=== PATIENT | female | born 1970 | race African-American/Black ===

== ENCOUNTER 2017-03-26 10:02 | Inpatient (IN) | payer OTHER ==
--- NOTE | 2017-03-26 10:44 | PDOC ---
History of Present Illness - General History Source: Patient Exam Limitations: No Limitations - History of Present Illness Initial Comments: 03/26/17 11:56 The patient is a 46 year old female, with a significant past medical history of Anemia who presents to the emergency department with worsening L flank pain today. Patient reports the pain began yesterday with 2-3 episodes of vomiting ( nonbilious, nonbloody), nausea and dysuria. Today, patient reports progressively worsening pain radiating to her suprapubic area and across her abdomen. Patient reports pain is exacerbated upon deep inspiration and positional changes. Upon arrival to the ED, patient vital signs are significant for 101 temperature. She denies chest pain, headache or dizziness. She denies diarrhea or constipation. She denies frequency, urgency or hematuria. Patient denies sick contacts or recent travel. Allergies: NKA Past surgical history: None Social history: None PCP: None <Marzena Sheriff - Last Filed: 03/26/17 16:39> <Lion Billy - Last Filed: 03/26/17 18:08> - General Chief Complaint: Pain Stated Complaint: ABDOMINAL PAIN Time Seen by Provider: 03/26/17 10:36 Past History <Marzena Sheriff - Last Filed: 03/26/17 16:39> - Past Medical History Thyroid Disease: No - Suicide/Smoking/Psychosocial Hx Smoking History: Never smoked Have you smoked in the past 12 months: No Information on smoking cessation initiated: No Hx Alcohol Use: No Drug/Substance Use Hx: No Substance Use Type: None Hx Substance Use Treatment: No <Lion Billy - Last Filed: 03/26/17 18:08> - Past Medical History Allergies/Adverse Reactions: Allergies Allergy/AdvReac Type Severity Reaction Status Date / Time No Known Allergies Allergy Verified 03/26/17 13:04 Home Medications: Ambulatory Orders NK [No Known Home Medication] 03/26/17 Review of Systems - Review of Systems Able to Perform ROS?: Yes Comments:: 03/26/17 11:56 A complete review of 10 out of 10 review of systems is taken and is negative apart from what is previously mentioned below and in the HPI. <Marzena Sheriff - Last Filed: 03/26/17 16:39> *Physical Exam - Vital Signs Last Vital Signs Temp Pulse Resp BP Pulse Ox 99.2 F 86 18 138/78 100 03/26/17 10:08 03/26/17 10:08 03/26/17 10:08 03/26/17 10:08 03/26/17 10:08 - Physical Exam Comments: 03/26/17 11:56 Vitals: Triage Vital signs reviewed General Appearance: +Moderate distress, well nourished well developed, Head: Atraumatic, normocephalic Neck: Supple;No Nuchal rigidity Cardiac: Regular rate and rhythm, no murmurs, no rubs, no gallops, Lungs: Clear to auscultation bilateral, good air movement bilaterally, Abdomen: +L CVA tenderness. +Diffuse abdominal tenderness to palpation. Normal bowel sounds. Extremities: Full range of motion to all extremities, no cyanosis, clubbing, or edema Skin: Warm and dry, no rashes or lesions, no petechiae Neuro: AOX3; Cranial Nerves 2-12 grossly intact, Strength intact to all extremities, Sensation intact to all extremities <Marzena Sheriff - Last Filed: 03/26/17 16:39> - Vital Signs Last Vital Signs Temp Pulse Resp BP Pulse Ox 99.2 F 86 18 138/78 100 03/26/17 10:08 03/26/17 10:08 03/26/17 10:08 03/26/17 10:08 03/26/17 10:08 <Lion Billy - Last Filed: 03/26/17 18:08> ED Treatment Course - LABORATORY CBC & Chemistry Diagram: 03/26/17 12:50 03/26/17 11:15 - ADDITIONAL ORDERS Additional order review: Laboratory Results 03/26/17 11:15 Urine Color Yellow Urine Appearance Slcloudy Urine pH 6.0 D Urine Protein 1+ H Urine Glucose (UA) Negative Urine Ketones Negative Urine Blood Negative Urine Nitrite Negative Urine Bilirubin Negative Urine Urobilinogen Negative - Medications Given in the ED: ED Medications Discontinued Medications Generic Name Dose Route Start Last Admin Trade Name Manishq PRN Reason Stop Dose Admin Acetaminophen 1,000 mg 03/26/17 11:39 03/26/17 11:35 Tylenol - PO 03/26/17 11:40 1,000 mg NOW ONE Administration Morphine Sulfate 4 mg 03/26/17 10:48 03/26/17 11:30 Morphine Injection - IVPUSH 03/26/17 10:49 4 mg ONCE ONE Administration Sodium Chloride 2,000 ml 03/26/17 10:48 03/26/17 11:30 Normal Saline - IV 03/26/17 10:49 2,000 ml ONCE ONE Administration <Marzena Sheriff - Last Filed: 03/26/17 16:39> - LABORATORY CBC & Chemistry Diagram: 03/26/17 12:50 03/26/17 11:15 <Lion Billy - Last Filed: 03/26/17 18:08> Medical Decision Making - Medical Decision Making 03/26/17 13:[address] Grande- [employer] ENTRY CLERK Voicemail left Awaiting call back. 03/26/17 13:[address] Grande- [employer] ENTRY CLERK Voicemail left Awaiting call back. 03/26/17 13:[address] Grande- [employer] ENTRY CLERK Voicemail left Awaiting call back. 03/26/17 14:30 Call placed to L&D 03/26/17 14:[address] Coleman. Awaiting call back. 03/26/17 15:[address] Coleman. Awaiting call back. 03/26/17 15:[address] Coleman. Case discussed. 03/26/17 15:42 Transvaginal US Impression: Large retroverted fibroid uterus, as described above. Normal- appearing left ovary. Couple of small cysts/follicles in the right ovary with a small amount of free fluid in the right adnexa and cul-de-sac. Adjacent fluid- filled small bowel loops Reported By: Khang Kim MD 03/26/[address] Impression: Small right hepatic lesion again seen likely representing a cavernous hemangioma, without gross interval change. Further evaluation is needed for confirmation. Tiny left renal cysts. There is no evidence of small bowel obstruction. No enlarged lymph nodes are identified. Nonvisualization of the appendix. Enlarged fibroid uterus again seen. There is a small amount of free fluid again seen in the cul-de- sac extending to the right lower quadrant. Previously visualized right adnexal cysts are no longer visualized. Ill-defined hypodensity with wall thickening in the left hemipelvis that may represent the left ovary with multiple small cyst. A dilated left fallopian tube with wall thickening cannot be ruled out. Reported By: Khang Kim MD 03/26/17 1333 03/26/17 16:[address] Blackman Case discussed 03/26/17 16:[address] Sade Lawton telephone station repairer Awaiting call back <Marzena Sheriff - Last Filed: 03/26/17 16:39> - Critical Care Time Total Critical Care Time (minutes): 40 Critical Care Statement: The care of this patient involved high complexity decision making to prevent further life threatening deterioration of the patient 's condition and/or to evaluate & treat vital organ system(s) failure or risk of failure. - Medical Decision Making 03/26/17 11:40 46 years old with no significant past medical history presents to the emergency department with 2 day history of back pain dysuria and abdominal discomfort. Positive vomiting last night. On examination patient very tender abdomen and flank discomfort. Here in the emergency department febrile to 101 Tylenol given blood cultures ordered urinalysis sent labs sent we'll CT abdomen pelvis with IV contrast pain meds and reassess 03/26/17 16:45 Reevaluation no acute findings on CAT scan given fibroid and possible left ovarian findings and ultrasound was ordered A bedside ultrasound was performed with moderate to severe cervical motion tenderness and copious yellow/white discharge. A culture was sent At this time ultrasound with reassuring findings no evidence of torsion no evidence of ovarian mass Most likely diagnosis at this time is PID patient treated with cefoxitin doxycycline and Flagyl covering for Dr. Keith agrees with admission. Dr. Rizzo covering for Dr. Gregorio [employer] ENTRY CLERK aware of admission we'll consult <Lion Billy - Last Filed: 03/26/17 18:08> *DC/Admit/Observation/Transfer - Attestations Scribe Attestion: 03/26/17 11:57 Documentation prepared by Marzena Sheriff, acting as director medical writing for Lion Billy MD <Marzena Sheriff - Last Filed: 03/26/17 16:39> - Discharge Dispostion Admit: Yes <Lion Billy - Last Filed: 03/26/17 18:08> Diagnosis at time of Disposition: PID (pelvic inflammatory disease)
[2017-03-26] MEDS ORDERED: SODIUM CHLORIDE 1,000 ML IV STA (10:45)
[2017-03-26] MEDS ORDERED: morphine CARPU-JECT 4 MG/1 ML DISP.SYRIN IVPUSH ONE (10:48)
[2017-03-26] MEDS ORDERED: SODIUM CHLORIDE 0.9% 1000 ML INFUS.BAG IV ONE (10:48)
[2017-03-26] MEDS ORDERED: morphine CARPU-JECT 10 MG/1 ML DISP.SYRIN ONE (11:31)
[2017-03-26] MEDS ORDERED: ACETAMINOPHEN 325 MG TABLET (FP) ONE ×2 (11:31→18:25)
[2017-03-26] MEDS ORDERED: ACETAMINOPHEN 500 MG TABLET (FP) PO ONE (11:39)
[2017-03-26 11:41] LABS: URINE APPEARANCE SLCLOUDY; URINE BILIRUBIN NEGATIVE (NEGATIVE); URINE BLOOD NEGATIVE (NEGATIVE); URINE COLOR YELLOW; URINE GLUCOSE (UA) NEGATIVE (NEGATIVE); URINE KETONE NEGATIVE (NEGATIVE); URINE NITRITE NEGATIVE (NEGATIVE); URINE UROBILINOGEN NEGATIVE mg/dL (0.2-1.0)
[2017-03-26] MEDS ORDERED: ACETAMINOPHEN 325 MG TABLET (FP) PO ONE ×2 (11:41→17:39)
[2017-03-26 11:53] LABS: URINE PROTEIN 1+ (NEGATIVE)
[2017-03-26 11:55] LABS: URINE MUCUS MODERATE; URINE RBC 1 /hpf (0-3); URINE WBC 1 /hpf (3-5)
[2017-03-26 12:07] LABS: ALBUMIN 3.6 g/dl (3.4-5.0); ANION GAP 7 (8-16); CALCIUM 8.7 mg/dL (8.5-10.1); CO2 25 mmol/L (21-32); CREATININE 0.9 mg/dL (0.55-1.02); GLUCOSE,RANDOM 141 mg/dL (74-106); SGOT/AST 13 U/L (15-37); SGPT/ALT 14 U/L (12-78)
[2017-03-26 12:08] LABS: ALK PHOS 53 U/L (45-117); BILIRUBIN,TOTAL 0.6 mg/dL (0.2-1.0); TOT PROT 8.4 g/dl (6.4-8.2)
[2017-03-26 13:06] LABS: MCHC 31.6 g/dl (32.0-36.0); MEAN CELL VOLUME 69.7 fl (80-96); MEAN PLT VOLUME 11.2 fl (7.5-11.1); PLATELET COUNT 121 K/MM3 (134-434); RDW 18.4 % (11.6-15.6); WHITE BLOOD COUNT 7.7 K/mm3 (4.0-10.0)
[2017-03-26 13:23] LABS: INR 1.33 (0.82-1.09)
[2017-03-26 13:25] LABS: ACTIVATED PTT 25.6 SECONDS (26.9-34.4)
[2017-03-26 14:29] LABS: PLATELET ESTIMATE SLT DECREASED (NORMAL); POLYCHROMASIA 1+; TOTAL CELLS COUNTED 100
[2017-03-26 14:30] LABS: HYPOCHROMIA 1+; MICROCYTOSIS 2+
[2017-03-26] MEDS ORDERED: cefOXitin SODIUM 2 GM VIAL (RESTRICTED TO ID) IVPB ONE (16:27)
[2017-03-26] MEDS ORDERED: DOXYCYCLINE HYCLATE 100 MG CAPSULE PO ONE (16:27)
[2017-03-26] MEDS ORDERED: CEFOXITIN SODIUM 2 GM in DEXTROSE 5%-WATER - 100 ML IVPB ONE (16:45)
[2017-03-26] MEDS ORDERED: metroNIDAZOLE 250 MG TABLET PO ONE (16:47)
[2017-03-26] MEDS ORDERED: metroNIDAZOLE 250 MG TABLET ONE (18:25)
[2017-03-26 21:04] LABS: URINE LEUK ESTERASE Negative (NEGATIVE)
--- NOTE | 2017-03-26 21:38 | PDOC ---
*Physical Exam - Vital Signs Last Vital Signs Temp Pulse Resp BP Pulse Ox 100.6 F H 99 H 18 140/82 96 03/26/17 19:45 03/26/17 18:08 03/26/17 10:08 03/26/17 18:08 03/26/17 18:08 ED Treatment Course - LABORATORY CBC & Chemistry Diagram: 03/26/17 12:50 03/26/17 11:15 - ADDITIONAL ORDERS Additional order review: Laboratory Results 03/26/17 03/26/17 03/26/17 12:50 12:50 12:50 PT with INR 15.00 H INR 1.33 H PTT (Actin FS) 25.6 L Sodium Potassium Chloride Carbon Dioxide Anion Gap BUN Creatinine Creat Clearance w eGFR Random Glucose Lactic Acid Calcium Total Bilirubin AST ALT Alkaline Phosphatase Total Protein Albumin Beta HCG, Quant Urine Color Urine Appearance Urine pH Ur Specific [place] Urine Protein Urine Glucose (UA) Urine Ketones Urine Blood Urine Nitrite Urine Bilirubin Urine Urobilinogen Ur Leukocyte Esterase Urine RBC Urine WBC Ur Epithelial Cells Urine Mucus Urine HCG, Qual Negative Blood Type A POSITIVE Antibody Screen Negative 03/26/17 03/26/17 03/26/17 11:15 11:15 11:15 PT with INR INR PTT (Actin FS) Sodium 130 L Potassium 4.0 Chloride 98 Carbon Dioxide 25 Anion Gap 7 L BUN 8 D Creatinine 0.9 Creat Clearance w eGFR > 60 Random Glucose 141 H D Lactic Acid 1.9 Calcium 8.7 Total Bilirubin 0.6 D AST 13 L ALT 14 Alkaline Phosphatase 53 Total Protein 8.4 H Albumin 3.6 D Beta HCG, Quant < 1.0 Urine Color Yellow Urine Appearance Slcloudy Urine pH 6.0 D Ur Specific [place] 1.025 Urine Protein 1+ H Urine Glucose (UA) Negative Urine Ketones Negative Urine Blood Negative Urine Nitrite Negative Urine Bilirubin Negative Urine Urobilinogen Negative Ur Leukocyte Esterase Negative Urine RBC 1 Urine WBC 1 Ur Epithelial Cells Rare Urine Mucus Moderate Urine HCG, Qual Blood Type Antibody Screen 03/26/17 11:00 PT with INR INR PTT (Actin FS) Sodium Potassium Chloride Carbon Dioxide Anion Gap BUN Creatinine Creat Clearance w eGFR Random Glucose Lactic Acid Calcium Total Bilirubin AST ALT Alkaline Phosphatase Total Protein Albumin Beta HCG, Quant Cancelled Urine Color Urine Appearance Urine pH Ur Specific [place] Urine Protein Urine Glucose (UA) Urine Ketones Urine Blood Urine Nitrite Urine Bilirubin Urine Urobilinogen Ur Leukocyte Esterase Urine RBC Urine WBC Ur Epithelial Cells Urine Mucus Urine HCG, Qual Blood Type Antibody Screen 03/26/17 03/26/17 12:50 11:15 RBC 3.19 L D Cancelled MCV 69.7 L Cancelled MCHC 31.6 L Cancelled RDW 18.4 H D Cancelled MPV 11.2 H Cancelled Neutrophils % No Result Required. Cancelled Lymphocytes % No Result Required. Cancelled Monocytes % Cancelled Eosinophils % Cancelled Basophils % Cancelled - Medications Given in the ED: ED Medications Discontinued Medications Generic Name Dose Route Start Last Admin Trade Name Manishq PRN Reason Stop Dose Admin Acetaminophen 1,000 mg 03/26/17 11:39 03/26/17 11:35 Tylenol - PO 03/26/17 11:40 1,000 mg NOW ONE Administration Acetaminophen 650 mg 03/26/17 11:41 03/26/17 12:14 Tylenol - PO 03/26/17 11:42 Not Given ONCE ONE Acetaminophen 650 mg 03/26/17 17:39 03/26/17 18:30 Tylenol - PO 03/26/17 17:40 650 mg ONCE ONE Administration Doxycycline Hyclate 100 mg 03/26/17 16:27 03/26/17 18:30 Vibramycin - PO 03/26/17 16:28 100 mg ONCE ONE Administration Sodium Chloride 1,000 mls @ 1,000 mls/hr 03/26/17 10:45 03/26/17 13:03 Normal Saline - IV 03/26/17 11:44 1,000 mls/hr ASDIR STA Administration Cefoxitin Sodium 2 gm/ 100 mls @ 200 mls/hr 03/26/17 16:45 03/26/17 18:36 Dextrose IVPB 03/26/17 17:14 200 mls/hr ONCE ONE Administration Metronidazole 500 mg 03/26/17 16:47 03/26/17 18:25 Flagyl - PO 03/26/17 16:48 500 mg ONCE ONE Administration Morphine Sulfate 4 mg 03/26/17 10:48 03/26/17 11:30 Morphine Injection - IVPUSH 03/26/17 10:49 4 mg ONCE ONE Administration Sodium Chloride 2,000 ml 03/26/17 10:48 03/26/17 11:30 Normal Saline - IV 03/26/17 10:49 2,000 ml ONCE ONE Administration Medical Decision Making - Medical Decision Making 03/26/17 21:37 Pt had been admitted to Dr. Ching/Jered; however, they are requesting that I admit patient to Dr Marc Grande, of [employer] COORDINATOR, as pt has PID; Pt was admitted to [facility] floor; now she spiked a fever and pt is to be admitted to med surg floor under Dr. Grande. *DC/Admit/Observation/Transfer Diagnosis at time of Disposition: PID (pelvic inflammatory disease) - Discharge Dispostion Condition at time of disposition: Guarded Admit: Yes
[2017-03-26] MEDS: HYDROmorphone HCL CARPU-JECT 1 MG/1 ML DISP.SYRIN IVPB PRN (23:38)
[2017-03-27 00:34] VITALS: BMI 30.2
[2017-03-27] MEDS: HYDROmorphone HCL CARPU-JECT 1 MG/1 ML DISP.SYRIN IVPB PRN ×3 (06:16→22:38)
[2017-03-27] MEDS ORDERED: FLU VACCINE QUAD 60 MCG/0.5 ML (MDV 17-18) IM ONE (10:00)
--- NOTE | 2017-03-27 22:46 | HP ---
Admitting History and Physical - Admission Chief Complaint: Abdominal pain History of Present Illness: 46 yo Para 0, admitted for c/o abdominal pain. Patient was given a diagnosis of PID and was placed on antibiotics. Patient is known to my office. She was being worked up for myomectomy. She has enlarged fibroid uterus but desires fertility. History Source: Patient - Past Medical History ...LMP: 12/04/15 ...: No ...Para: 0 Heme/Onc: Yes: Anemia - Past Surgical History Past Surgical History: Yes: None - Smoking History Smoking history: Never smoked Have you smoked in the past 12 months: No - Alcohol/Substance Use Hx Alcohol Use: No History of Substance Use: reports: None - Social History Usual Living Arrangement: Yes: With Significant Other History of Recent Travel: No Home Medications - Allergies Allergies/Adverse Reactions: Allergies Allergy/AdvReac Type Severity Reaction Status Date / Time No Known Allergies Allergy Verified 03/26/17 13:04 - Home Medications Home Medications: Ambulatory Orders NK [No Known Home Medication] 03/26/17 Family Disease History - Family Disease History Family History: Unremarkable Review of Systems - Review of Systems Constitutional: reports: No Symptoms Eyes: reports: No Symptoms HENT: reports: No Symptoms Neck: reports: No Symptoms Cardiovascular: reports: No Symptoms Respiratory: reports: No Symptoms Gastrointestinal: reports: No Symptoms Genitourinary: reports: No Symptoms Breasts: reports: No Symptoms Reported Musculoskeletal: reports: No Symptoms Integumentary: reports: No Symptoms Neurological: reports: No Symptoms Endocrine: reports: No Symptoms Hematology/Lymphatic: reports: No Symptoms Psychiatric: reports: No Symptoms Pain Intensity: 4 Physical Examination Vital Signs: Vital Signs Temperature 98.7 F 03/27/17 18:10 Pulse Rate 89 03/27/17 18:10 Respiratory Rate 18 03/27/17 18:10 Blood Pressure 141/88 03/27/17 18:10 O2 Sat by Pulse Oximetry (%) 98 03/27/17 09:00 Constitutional: Yes: Well Nourished Eyes: Yes: Conjunctiva Clear HENT: Yes: Atraumatic Neck: Yes: Supple Cardiovascular: Yes: Regular Rate and Rhythm Respiratory: Yes: Regular, CTA Bilaterally Gastrointestinal: Yes: Normal Bowel Sounds Neurological: Yes: Alert, Oriented ...Motor Strength: WNL Psychiatric: Yes: Alert, Oriented Problem List - Problems (1) Leiomyoma of body of uterus Code(s): D25.9 - LEIOMYOMA OF UTERUS, UNSPECIFIED Assessment/Plan Abdominal pain Leiomyoma of the uterus R/O pelvic inflammatory syndrome Continue antibiotic Discharge home in am
--- NOTE | 2017-03-28 08:50 | DS ---
Physical Examination Vital Signs: Vital Signs Temperature 99.1 F 03/28/17 06:00 Pulse Rate 85 03/28/17 06:00 Respiratory Rate 18 03/28/17 06:00 Blood Pressure 137/75 03/28/17 06:00 O2 Sat by Pulse Oximetry (%) 100 03/27/17 21:00 Constitutional: Yes: Well Nourished Eyes: Yes: Conjunctiva Clear HENT: Yes: Atraumatic Neck: Yes: Supple, Trachea Midline Cardiovascular: Yes: Regular Rate and Rhythm Respiratory: Yes: Regular, CTA Bilaterally Gastrointestinal: Yes: Normal Bowel Sounds Musculoskeletal: Yes: WNL Integumentary: Yes: WNL Neurological: Yes: Alert, Oriented ...Motor Strength: WNL Psychiatric: Yes: Alert, Oriented Discharge Summary Reason For Visit: PELVIC INFLAMMATORY DISEASE Current Active Problems Leiomyoma of body of uterus (Acute) PID (pelvic inflammatory disease) (Acute) Hospital Course: Patient admitted for abdominal pain. There was suspicion of Pelvic inflammatory syndrome; she was placed on IV antibiotic and analgesia. Condition: Good - Instructions Diet, Activity, Other Instructions: Regular diet Follow up with MD in one week Disposition: HOME - Home Medications Comprehensive Discharge Medication List: Ambulatory Orders NK [No Known Home Medication] 03/26/17
[2017-03-28 09:43] VITALS: BP 140/80; PULSE 90; TEMP 98.6
== END 2017-03-28 09:38 | disposition home or self-care (01) | DRG 531 ==
LOC: JER 10:02 → JERBED 16:44 → J5S 21:48
PROVIDERS: ADMIT Obstetrics & Gynecology; ATTEND Obstetrics & Gynecology
DX: N73.8 Other specified female pelvic inflammatory diseases (principal); D25.9 Leiomyoma of uterus, unspecified; D64.9 Anemia, unspecified; R10.9 Unspecified abdominal pain
CPT/HCPCS: 36415; 74177-TC; 76830-TC; 80053; 81003; 81015; 83605; 84702; 84703; 85025; 85610; 85730; 86850; 86900; 86901; 87040; 87086; 87491; 87591; 90688; 99282-25; G0008